=== PATIENT | female | born 1950 | race Two or more races ===

== ENCOUNTER 2022-10-21 18:34 | Emergency (ER) | payer MEDICARE ==
[~2022-10-21] VITALS: Ht 170.2 cm; Wt 93.0 kg
--- NOTE | 2022-10-21 18:58 | NUR ---
PT IN ROOM C/O POTENTIAL PSUDOSEIZURE SEIZURE PRECAUTIONS IN PLACE BREATHING UNLABORED ON ROOM AIR 99% O2SAT. IS RESPONSIVE TO QUESTIONS. Hx OF SEIZURE DISORDER. Addendum: 10/21/22 at 1900 by TBANZON PT CONNECTED TO BEDISIDE MONITOR BED RAILS UP LOW FOWLERS
[2022-10-21 20:09] LABS: BASOPHILS % (AUTO) 0.3 % (0.0-2.0); HEMATOCRIT 38 % (33-45); HEMOGLOBIN 12.3 g/dL (11.5-14.8); LYMPHOCYTES # (AUTO) 1.4 K/uL (0.8-4.8); LYMPHOCYTES % (AUTO) 32.9 % (20.0-44.0); MEAN CORPUSCULAR HGB CONC 33 g/dl (31.0-36.0); MEAN CORPUSCULAR VOLUME 98 fL (82-100); MONOCYTES # (AUTO) 0.5 K/uL (0.1-1.30); NEUTROPHILS # (AUTO) 2.3 K/uL (1.8-8.9); NEUTROPHILS % (AUTO) 53.8 % (43.0-81.0); PLATELET COUNT (AUTO) 177 K/uL (150-450); RED BLOOD CELL COUNT(AUTO) 3.82 MIL/uL (4.0-5.2); WHITE BLOOD COUNT (AUTO) 4.2 K/uL (4.3-11.0)
[2022-10-21 21:31] LABS: CALCIUM, SERUM 8.9 mg/dL (8.5-10.1); CREATININE 0.8 mg/dL (0.6-1.3)
--- NOTE | 2022-10-21 21:33 | NUR ---
ortiz nj sister
--- NOTE | 2022-10-21 22:09 | NUR ---
CALLED [facility] FOR TRANSPORTATION ETA 90MIN-2HR
--- NOTE | 2022-10-21 22:11 | NUR ---
REPORT GIVEN TO TIMI FOR TRANSPORT BACK TO FACILITY
--- NOTE | 2022-10-21 22:30 | NUR ---
PT ALERT AND ANSWERING QUESTIONS BACK TO BASELINE A/O X2. NO SEIZURE ACTIVITY NOTED DURING OBSERVATION TIME LABS RESULTS NEGATIVE FOR ABNORMALITIES. FACILTY AND SISTER INFORMED OF FINDINGS.
--- NOTE | 2022-10-21 22:44 | NUR ---
IV CANNULA REMOVED
--- NOTE | 2022-10-21 22:49 | NUR ---
[facility] AT PT'S BEDSIDE TO D/C PT TO FACILITY
[2022-10-21 23:15] VITALS: BP 120/72
[2022-10-22 00:14] LABS: ALBUMIN 3.5 g/dL (3.4-5.0); BILIRUBIN,DIRECT 0.1 mg/dL (0.0-0.2); BILIRUBIN,TOTAL 0.3 mg/dL (0.2-1.0); TOTAL PROTEIN, SERUM 7.5 g/dL (6.4-8.2)
== END 2022-10-21 23:00 | disposition home or self-care (01) ==
LOC: ER 18:47
DX: G40.909 Epilepsy, unspecified, not intractable, without status epilepticus (principal); R25.1 Tremor, unspecified; I48.91 Unspecified atrial fibrillation; F32.A Depression, unspecified; Z88.0 Allergy status to penicillin
CPT/HCPCS: 36415; 80048-TC; 80076-TC; 85025-TC